=== PATIENT | female | born 1995 | race African-American/Black ===

== ENCOUNTER 2018-09-10 15:24 | Emergency (ER) | payer SELFPAY ==
[2018-09-10] MEDS ORDERED: Acetaminophen 500 MG TAB ONE (16:20)
== END 2018-09-10 17:54 | disposition home or self-care (01) ==
LOC: ERS 15:24
DX: J10.1 Influenza due to other identified influenza virus with other respiratory manifestations (principal)
CPT/HCPCS: 87804; 99283